=== PATIENT | female | born 1980 | race African-American/Black ===

== ENCOUNTER 2022-08-07 21:18 | Emergency (ER) | payer OTHER ==
[2022-08-07] MEDS ORDERED: BACITRACIN ZINC 0.9GM TP ONE (22:00)
[2022-08-07] MEDS ORDERED: MUPIROCIN 2% OINT 22 GM TUBE TOP ONE (22:00)
[2022-08-07] MEDS ORDERED: TYLENOL325 MG PO (22:07)
[2022-08-07] MEDS ORDERED: IBUPROFEN200 MG PO (22:07)
[2022-08-07] MEDS ORDERED: PREDNISONE20 MG PO (22:31)
[2022-08-07 22:35] VITALS: BP 130/68
== END 2022-08-07 22:35 | disposition home or self-care (01) ==
LOC: FSED 21:29
DX: S83.8X2A Sprain of other specified parts of left knee, initial encounter (principal); S80.212A Abrasion, left knee, initial encounter; W10.8XXA Fall (on) (from) other stairs and steps, initial encounter; Y93.01 Activity, walking, marching and hiking; Y92.89 Other specified places as the place of occurrence of the external cause; F17.210 Nicotine dependence, cigarettes, uncomplicated
CPT/HCPCS: 99283